=== PATIENT | female | born 2005 | race Caucasian/White ===

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

== ENCOUNTER 2023-09-05 11:54 | Outpatient (CLI) | payer BC, SELFPAY ==
[2023-09-05 15:51] LABS: Chlamydia DNA Amplified* NOT DETECTED (No Detected); GC DNA Amplified* NOT DETECTED (No Detected)
== END 2023-09-05 11:55 | disposition home or self-care (01) ==
LOC: NFLDREF 11:54
PROVIDERS: PCP Nurse Practitioner Family; Visit Provider Registered Nurse
DX: N89.8 Other specified noninflammatory disorders of vagina (principal); Z11.3 Encounter for screening for infections with a predominantly sexual mode of transmission
CPT/HCPCS: 87491; 87591

== ENCOUNTER 2025-04-20 14:20 | Outpatient (CLI) | payer BC, SELFPAY ==
[2025-04-20 19:35] LABS: Bacterial Vaginosis* Negative (Negative); Candida glab/krus NOT DETECTED (No Detected)
[2025-04-20 20:06] LABS: Chlamydia DNA Amplified* NOT DETECTED (No Detected); GC DNA Amplified* NOT DETECTED (No Detected)
[2025-04-29 15:12] LABS: Pap Test Digital Imaging Done; Pap Test Reviewed by Path Done
== END 2025-04-20 14:21 | disposition home or self-care (01) ==
PROVIDERS: PCP Nurse Practitioner Family; Visit Provider Registered Nurse
DX: Z11.3 Encounter for screening for infections with a predominantly sexual mode of transmission (principal); Z12.4 Encounter for screening for malignant neoplasm of cervix
CPT/HCPCS: 81513; 86703; 86780; 86803; 87340; 87481; 87491; 87591; 87624; 87625; 87661; 88141; 88142; 88175